=== PATIENT | female | born 1950 | race Two or more races ===

== ENCOUNTER 2019-03-09 05:48 | Day surgery (SDC) | payer OTHER ==
[~2019-03-09 05:48] MED LIST: ALENDRONATE SOD70 MG PO; ATORVASTATIN CA10 MG PO; LOSARTAN-HCTZ1 EAC1 PO; METFORMIN HCL500 M2 PO; METOPROLOL TART50 MG PO
[2019-03-09] MEDS ORDERED: ULTRACET PO (11:07)
[2019-03-09] MEDS ORDERED: MACROBID 100 M100 MG PO (11:07)
== END 2019-03-09 15:10 | disposition home or self-care (01) ==
LOC: CIR.AMB 05:48 → EDBD 09:00 → CIR.AMB 09:00
DX: N81.11 Cystocele, midline (principal)

== ENCOUNTER 2019-03-20 07:39 | Inpatient (IN) | payer OTHER ==
[~2019-03-20] VITALS: Ht 149.9 cm; Wt 60.8 kg
[~2019-03-20 07:39] MED LIST changes: +MACROBID 100 M100 MG PO; +ULTRACET PO
[2019-03-22] MEDS ORDERED: TOPROL XL50 M1 PO (09:37)
[2019-03-25] MEDS ORDERED: ALENDRONATE SOD70 MG PO (11:40)
[2019-03-25] MEDS ORDERED: ATORVASTATIN CA10 MG PO (11:40)
[2019-03-25] MEDS ORDERED: TOPROL XL50 M1 PO (11:40)
[2019-03-25] MEDS ORDERED: CEFDINIR300 MG PO (11:40)
[2019-03-25] MEDS ORDERED: COZAAR100 MG PO (11:40)
== END 2019-03-25 12:21 | disposition home or self-care (01) | DRG 699 ==
LOC: ER 07:39 → MEDJ 15:35 → SEC-K 15:35 → MEDJ 16:49
PROVIDERS: ADMIT Internal Medicine Geriatric Medicine
PROC: BW41ZZZ Ultrasonography of Abdomen and Pelvis (ICD-10-PCS; principal; 2019-03-20)
DX: N28.1 Cyst of kidney, acquired (principal); N39.0 Urinary tract infection, site not specified; N17.8 Other acute kidney failure; N81.11 Cystocele, midline; D64.89 Other specified anemias